=== PATIENT | female | born 1940 | race Caucasian/White ===

== ENCOUNTER 2022-07-09 08:15 | Outpatient (CLI) | payer MEDICARE, BC, SELFPAY ==
[2022-07-09 14:30] LABS: SARS PCR* Negative SARS-CoV-2 (Negative)
== END 2022-07-09 08:16 | disposition home or self-care (01) ==
LOC: FBOREF 08:16
PROVIDERS: PCP Internal Medicine; Visit Provider Orthopaedic Surgery Sports Medicine
DX: Z20.822 Contact with and (suspected) exposure to COVID-19 (principal)
CPT/HCPCS: 87635

== ENCOUNTER 2022-07-13 06:29 | Day surgery (SDC) | payer MEDICARE, BC, SELFPAY ==
[2022-07-13] VITALS (26 sets, daily range): BP systolic 82–185; BP diastolic 49–105; PULSE 64–94; RESP 10–18; TEMP 35.2–36.8; O2SAT 93–100; BMI 26.4
[2022-07-13] MEDS: LACTATED RINGERS 1000 ML 1,000 ML 100 ML IV ×2 (06:20→09:11)
[2022-07-13] MEDS: CELECOXIB 200 MG CAPSULE PO ×2 (06:45→21:19)
[2022-07-13] MEDS: ACETAMINOPHEN 500 MG TABLET 1000 MG PO ×2 (06:45→14:54)
--- NOTE | 2022-07-13 07:45 | CRLHL7_ITS ---
For Patients: As a result of the Cures Act, medical imaging exams and procedure reports are released immediately into your electronic medical record. You may view this report before your referring provider. If you have questions, please contact your health care provider. Indication: Postop Technique: Two views right knee Comparison: No comparison Findings: Right knee total arthroplasty in satisfactory position. Postoperative soft tissue edema and gas. Dictated by Kady Gonzales MD @ 07/13/2022 11:17:04 AM (Electronically Signed)
[2022-07-13] MEDS: fentaNYL 100 MCG/2 ML inj IVP (07:59)
[2022-07-13] MEDS: MIDAZOLAM HCL 1 MG/ML inj IVP (08:00)
[2022-07-13] MEDS: CEFAZOLIN 2 GM in 0.9 % SODIUM CHLORIDE Mini-bag 100 ML IVPB (08:40)
[2022-07-13] MEDS: TRANEXAMIC ACID 100 MG/ML INJ 1000 MG IV (08:45)
--- NOTE | 2022-07-13 09:08 | P.NB_ITS ---
Nerve Block Nerve Block Time Seen by Provider: 07:57 Date Seen: 07/13/22 Type of block requested by surgeon for post-operative analgesia: geniculars Side: right Time out performed: Yes Verification of patient name: Yes Verification of date of : Yes Site marking: site marked Name of person performing procedure: Michael Continuous monitoring Was continuous monitoring of O2 sat, B/P, groundwater monitoring technician, recorded every 15 minutes?: Yes Procedure Checklist: sterile prep, needles and gloves Medications given in 5ml increments after negative aspiration: Ropivicaine %: 0.5 mL: 9 Needle gauge: 25 Patient tolerated procedure well: Yes Block Charges Block Charge (with Pro Fee): Genicular Nerve Block Use of Ultrasound Machine for Block: No
--- NOTE | 2022-07-13 09:08 | W.PM.NB ---
Nerve Block Nerve Block Time Seen by Provider: 07:57 Date Seen: 07/13/22 Type of block requested by surgeon for post-operative analgesia: adductor canal Side: right Time out performed: Yes Verification of patient name: Yes Verification of date of : Yes Site marking: site marked Name of person performing procedure: Michael Continuous monitoring Was continuous monitoring of O2 sat, B/P, color television console monitor, recorded every 15 minutes?: Yes Procedure Checklist: sterile prep, needles and gloves Ultrasound guided. Images saved: Yes Medications given in 5ml increments after negative aspiration: Ropivicaine %: 0.5 mL: 20 Needle gauge: 20 Decadron (mg): 10 Precedex (mcg): 25 Patient tolerated procedure well: Yes Additional comments: Needle noted adjacent to nerve Block Charges Block Charge (with Pro Fee): Femoral Nerve Use of Ultrasound Machine for Block: Yes- US Guidance/pain block
--- NOTE | 2022-07-13 09:08 | W.ANESCHARGE ---
Anesthesia Charges Start Date/Time Anesthesia Start Date: 07/13/22 Anesthesia Start Time: 08:24 Stop Date/Time Anesthesia Stop Date: 07/13/22 Anesthesia Stop Time: 10:42 Summary Extremes of Age - Over 70 or under 1: MDA
--- NOTE | 2022-07-13 09:54 | PM.ORPRC ---
Procedure Note Date of procedure: 07/13/22 Procedure: PREOPERATIVE DIAGNOSIS: 1. Right knee osteoarthritis, primary, severe POSTOPERATIVE DIAGNOSIS: 1. Right knee osteoarthritis, primary, severe PROCEDURE: 1. Right total knee arthroplasty SURGEON: Nilton Beck MD. HOSPICE CLINICAL MARKETER: Lew Covarrubias PA-C - Of note, a skilled assistant plant manager was critical for this case to aid in patient positioning, tissue retraction, limb manipulation/positioning, and closure. ANESTHESIA: Spinal anesthetic IMPLANTS: DePuy J&J all cemented TKA - Attune PS femur size 4 regular, size 3 tibia, 5 poly spacer, 35 mm patella TOURNIQUET: 90 min at 260 torr EBL: 50 ml COMPLICATIONS: None evident INDICATIONS: The patient is a pleasant 82-year-old female who has experienced severe right knee pain and difficulty bearing weight. Workup included x-rays which revealed severe osteoarthrosis in the knee. Given the deformity, the dysfunction, and the pain, as well as the failure of nonoperative management, recommendation was made for surgery. FINDINGS: Good tissue quality and bone quality throughout. Severe chondral loss medial and patellofemoral compartments diffusely. Tricompartmental osteophytes. Moderate effusion upon entering the joint. To lesser degree, lateral compartment chondromalacia also noted. DESCRIPTION OF PROCEDURE: Following a thorough discussion of risks, benefits, and alternatives consent was obtained and the right knee was marked. The patient was brought to the operating room and placed supine on the operating table. Induction of anesthesia was undertaken. 1 g IV Ancef and 1 g tranexamic acid was administered within 1 hr of incision preoperatively. Proper time-out was performed identifying proper patient, site, procedure. The operative extremity was prepped and draped in the appropriate sterile fashion using ChloraPrep after the patient was positioned supine with all bony prominences well padded. A longitudinal, anterior, midline skin incision was made starting approximately 3cm proximal to the superior pole of the patella and advanced distal to the tibial tubercle. A median parapatellar arthrotomy was created. A medial subperiosteal sleeve was created with knife, villeda elevator and curved osteotome. The retropatellar fatpad was resected and the synovium in the suprapatellar pouch excised to visualize the anterior femoral cortex. Femoral preparation was performed via an intramedullary guide. Step drill allowed access into the femoral canal. The distal cutting guide was placed with 5? of valgus and 10 mm cut on the distal femur. Femur was sized using a posterior referencing guide in 3? of external rotation. This found have a best fit with the sizing noted above. The 4 in 1 cutting block was then placed, and the distal femur shaped accordingly. The box cut was then created and the trial implant inserted to confirm appropriate fit. We turned our attention to the proximal tibia. Extramedullary guide was utilized for cutting with the goal of being 90 degree cut from the mechanical axis of the tibia in the varus/valgus plane utilizing tibial crest as the primary alignment. Initially a 3 mm resection was performed from the medial tibial plateau. Ultimately, balancing was achieved in both flexion and extension in both varus and valgus. The knee was able to achieve full extension as well comfortably. The patella was initially measured and found have a thickness of 18 mm. It was resected back to approximately 14 mm. It was sized to be a best fit with as noted above. This was drilled, trial placed. All trials were placed and found to have an excellent stability and balance. At this stage, trial implants were removed, the knee was thoroughly irrigated with normal saline, and the cement was mixed. After irrigation, the knee was thoroughly dried, and cement placed, with the real tibial and femoral implants placed along with the patella. Trial poly spacer was placed and confirmed to have excellent range of motion and full extension, and the real poly spacer opened and inserted. All extra cement was removed, and a 3 min Betadine soak performed. Finally, a final irrigation round with normal saline was performed. Closure performed with 0 Vicryl and #0 Stratafix for the quad tendon/retinaculum. 2-0 Vicryl for the subcutaneous and 4-0 Stratafix for subcuticular closure. Dressings were applied and the patient was awoken from anesthesia after the tourniquet deflated and transferred the PACU in stable condition. A skilled assistant plant manager was critical for this case to aid in patient positioning, tissue retraction, bone exposure, limb manipulation/positioning, patient safety, and closure. PLAN: 1. Weight bear as tolerated operative extremity. 2. 23 hr perioperative antibiotics. 3. Ice. 4. PT/OT consults for ambulation assistance/mobility education. 5. Social work consult for discharge planning. 6. DVT prophylaxis with at SCDs, Noel Hose, and aspirin twice daily.
--- NOTE | 2022-07-13 10:40 | SUR.PREOP ---
TIME?OUT:?0800 PT/RN/MDA?VERIFICATION?OF?SURGICAL?SITE,?PROCEDURE,?AND?CONSENT OBTAINED?PRIOR?TO?INVASIVE?PROCEDURE.
--- NOTE | 2022-07-13 10:45 | W.ANESCHARGE ---
Anesthesia Charges Start Date/Time Anesthesia Start Date: 07/13/22 Anesthesia Start Time: 08:24 Stop Date/Time Anesthesia Stop Date: 07/13/22 Anesthesia Stop Time: 10:42 Summary Extremes of Age - Over 70 or under 1: RETAIL ADMINISTRATIVE ASSISTANT
[2022-07-13] MEDS: HYDROmorphone 0.5 mg/0.5 ml inj IVP (12:52)
[2022-07-13] MEDS: TRAMADOL HCL 50 MG TABLET PO (13:58)
[2022-07-13] MEDS: VALSARTAN 80 MG TABLET PO (14:56)
[2022-07-13] MEDS: CEFAZOLIN 1 GM in 0.9 % SODIUM CHLORIDE Mini-bag 100 ML IVPB ×2 (14:57→22:39)
--- NOTE | 2022-07-13 15:35 | PC.NURSE ---
Shift Summary: Pt arrived to Med Surg floor post op from RTK at 1115. Pt initially reported pain from 0-6/10. Pain improved with Cryocuff and medications. Pt tolerating ice chips, water, juice, and toast well. Pt ambulating with 1 SBA, gait belt, and walker. Pt bp elevated d/t pt stopping antihypertensives two days prior to surgery. Dr. Norman restarted home Valsartan. Pt will return home with daughter in law, Valentina to care for her.
--- NOTE | 2022-07-13 15:41 | PC.NURSE ---
End of Shift Summary: Pt presented to Med Surg unit at 1115 post RTK. Pt pain reported ranging from 0-6/10, improved with Cryocuff and pain medications. Pt tolerating juice, water, and toast well. Pt ambulating with 1 SBA, walker, and gait belt. Pt lives alone, plans to discharge home with help from daughter in law [place]. Pt bp elevated d/t pt holding antihypertensives two days pre op. Dr. Emerson beckham MD restarted home medication Valsartan.
[2022-07-13] MEDS: HYDROCODONE-ACETAMIN 5-325 MG 1 TAB PO ×2 (17:39→21:19)
--- NOTE | 2022-07-13 19:20 | PM.IMCN1 ---
Date of Consult Patient: Shobha Patient Consult date: 07/13/22 Requesting Physician: Orthopedics Primary Care Provider: Lilia Dunn MD Consult Narrative Reason for consult: Assist with postoperative management of hypertension Narrative: Shamar Stover is a 82 year old woman with known advanced, severe right gonarthrosis presents today for an elective right total knee arthroplasty with Dr. Nilton Beck. Procedures undertaken successfully under spinal anesthesia without any apparent complications, with estimated surgical blood loss of 50 mL. Postoperative patient was having difficulties with pain but this is better controlled now. Review of Systems Status of ROS: Reports: 10 or more systems reviewed and unremarkable except as noted in History and below Narrative: Still has some residual postoperative pain but is improved compared to few hours ago. Denies nausea or vomiting. Denies chest heaviness, pressure, tightness, or pain. Denies syncope or near-syncope. Denies orthostasis, lightheadedness, vertigo. Denies palpitations, chest fluttering, claudication. Tolerating increased activities. Notes that the ice packs helped tremendously did lower her pain. She is working with her orthopedic surgeons to address the pain at this time. Reviewed her preoperative assessment. Aside from her right knee discomfort, she has active. She has intermediate plans of continuing with her travels around the country in and around the world, which she enjoys. Remarkably she has had nausea and vomiting with oxycodone in the past. She tells me she has used [place] for pain control in the past without the nausea and vomiting. Requests full resuscitation in the event of cardiopulmonary demise. Primary care physician is Dr. Lilia Dunn. [facility] Medical History (Updated 07/13/22 @ 19:31 by Calos Lockett MD) Branch retinal vein occlusion of left eye ?H34.8322 - Tributary (branch) retinal vein occlusion, left eye, stable (ICD-10) Chronic constipation ?K59.09 - Other constipation (ICD-10) Chronic neck pain ?M54.2 - Cervicalgia (ICD-10) ?G89.29 - Other chronic pain (ICD-10) COVID-19 ?U07.1 - COVID-19 (ICD-10) DDD (degenerative disc disease), lumbar ?M51.36 - Other intervertebral disc degeneration, lumbar region (ICD-10) Essential (primary) hypertension ?I10 - Essential (primary) hypertension (ICD-10) GERD (gastroesophageal reflux disease) ?K21.9 - Gastro-esophageal reflux disease without esophagitis (ICD-10) Hypertension ?I10 - Essential (primary) hypertension (ICD-10) Nontoxic multinodular goiter ?E04.2 - Nontoxic multinodular goiter (ICD-10) Postmenopausal atrophic vaginitis ?N95.2 - Postmenopausal atrophic vaginitis (ICD-10) Primary osteoarthritis involving multiple joints ?M15.9 - Polyosteoarthritis, unspecified (ICD-10) Trigger finger, right middle finger ?M65.331 - Trigger finger, right middle finger (ICD-10) Trochanteric bursitis of both hips ?M70.61 - Trochanteric bursitis, right hip (ICD-10) ?M70.62 - Trochanteric bursitis, left hip (ICD-10) Surgical History (Updated 07/13/22 @ 19:31 by Calos Lockett MD) H/O cataract removal with insertion of prosthetic lens ?Z98.49 - Cataract extraction status, unspecified eye (ICD-10) ?Z96.1 - Presence of intraocular lens (ICD-10) H/O: hysterectomy ?Z90.710 - Acquired absence of both cervix and uterus (ICD-10) History of anterior colporrhaphy ?Z98.890 - Other specified postprocedural states (ICD-10) History of bladder surgery ?Z98.890 - Other specified postprocedural states (ICD-10) History of carpal tunnel surgery of left wrist (12/31/15) ?Z98.890 - Other specified postprocedural states (ICD-10) History of dilation and curettage ?Z98.890 - Other specified postprocedural states (ICD-10) History of laparoscopic-assisted vaginal hysterectomy ?Z90.710 - Acquired absence of both cervix and uterus (ICD-10) History of shoulder surgery (01/01/05) ?Z98.890 - Other specified postprocedural states (ICD-10) S/P trigger finger release (12/31/15) ?Z98.890 - Other specified postprocedural states (ICD-10) Status post hemilaminotomy ?Z98.890 - Other specified postprocedural states (ICD-10) Status post rotator cuff repair ?Z98.890 - Other specified postprocedural states (ICD-10) Family History Mother Stroke High blood pressure Father CHF (congestive heart failure) Brother H/O heart artery stent Social History Smoking Status: Former smoker What tobacco products do you use: cigarettes Smoking quit date/years: >15 years ago Do you use any of these nicotine containing products: None Second hand tobacco smoke exposure: No How often do you have a drink containing alcohol: 2-4 times a month Alcohol type: beer and wine How many standard drinks containing alcohol do you have on a typical day: 1 or 2 How often do you have six or more drinks on one occasion: Never AUDIT-C Alcohol total score: 2 Non-prescribed substance use: denies use Caffeine: Yes (coffee, 1 cup/day) Meds Home Medications and Allergies Home Medications Medication Instructions Recorded Confirmed Type aspirin 81 mg chewable tablet 1 tab PO DAILY 10/06/21 07/12/22 History calcium carbonate 600 mg calcium 600 mg PO BIDWM 10/06/21 07/12/22 History (1,500 mg) tablet cyclobenzaprine 10 mg tablet 10 mg PO HS 10/06/21 07/12/22 History multivitamin 1 tab PO DAILY 10/06/21 07/12/22 History omega-3 fatty acids 500 mg capsule 500 mg PO DAILY 10/06/21 07/12/22 History valsartan 80 mg tablet 80 mg PO DAILY 10/06/21 07/12/22 History Allergies Allergy/AdvReac Type Severity Reaction Status Date / Time latex Allergy Intermediate burning Verified 07/13/22 07:21 sensation erythromycin base Allergy Verified 07/13/22 07:21 Sulfa (Sulfonamide Allergy Nausea Verified 07/13/22 07:21 Antibiotics) acetaminophen AdvReac Mild Vomiting Verified 07/13/22 07:21 oxycodone AdvReac Mild Vomiting Verified 07/13/22 07:21 adhesive AdvReac Verified 07/13/22 07:21 Exam Narrative: Exam Narrative: Appears comfortable when I am examining her. No acute distress. Alert, oriented to self, place, time, situation. Friendly, articulate, cooperative. Mood and affect are congruent. Vision and hearing are grossly normal. Neck is supple. Midline trachea. No JVD or hepatojugular reflux. No carotid bruits. Lungs are clear to auscultation without wheezing, rhonchi, or rales. No CVA tenderness. Heart tones with regular rhythm, normal S1-S2. Grade 3/6 systolic murmur best heard in the right upper sternal border. No gallops or rubs. Abdomen with active bowel sounds, soft, nontender. No focal motor neurologic deficits. Const: Vital Signs, click to edit/add: Vital Signs - 24 hr 07/13/22 07:00 07/13/22 08:00 07/13/22 08:05 Temperature 98.3 F Pulse Rate 73 70 65 Pulse Rate [Left P ulse Oximeter] Respiratory Rate 16 14 14 Blood Pressure 155/79 H 179/99 H 120/66 Blood Pressure [Ri ght Arm] Pulse Oximetry 97 99 99 Oxygen Delivery Me thod Room Air Nasal Cannula Nasal Cannula Oxygen Flow Rate 3 3 07/13/22 08:11 07/13/22 08:16 07/13/22 10:40 Temperature 97.1 F L Pulse Rate 64 66 75 Pulse Rate [Left P ulse Oximeter] Respiratory Rate 14 16 13 Blood Pressure 111/60 100/61 82/49 L Blood Pressure [Ri ght Arm] Pulse Oximetry 99 100 94 Oxygen Delivery Me thod Nasal Cannula Room Air Oxygen Flow Rate 3 07/13/22 10:45 07/13/22 10:50 07/13/22 10:55 Temperature Pulse Rate 75 73 74 Pulse Rate [Left P ulse Oximeter] Respiratory Rate 10 L 12 18 Blood Pressure 93/52 L 99/60 109/68 Blood Pressure [Ri ght Arm] Pulse Oximetry 94 93 93 Oxygen Delivery Me thod Room Air Room Air Room Air Oxygen Flow Rate 07/13/22 11:00 07/13/22 11:05 07/13/22 11:10 Temperature Pulse Rate 71 70 71 Pulse Rate [Left P ulse Oximeter] Respiratory Rate 13 13 14 Blood Pressure 103/58 L 115/60 115/66 Blood Pressure [Ri ght Arm] Pulse Oximetry 93 93 94 Oxygen Delivery Me thod Room Air Room Air Room Air Oxygen Flow Rate 07/13/22 11:16 07/13/22 11:30 07/13/22 11:45 Temperature 95.6 F L 95.7 F L 95.4 F L Pulse Rate 68 Pulse Rate [Left P ulse Oximeter] 70 Respiratory Rate 16 16 16 Blood Pressure Blood Pressure [Ri ght Arm] 126/72 136/78 151/84 H Pulse Oximetry 99 96 Oxygen Delivery Me thod Room Air Room Air Room Air Oxygen Flow Rate 0 07/13/22 12:00 07/13/22 12:45 07/13/22 13:15 Temperature 95.7 F L 96.1 F L 96 F L Pulse Rate Pulse Rate [Left P ulse Oximeter] 69 76 75 Respiratory Rate 16 16 16 Blood Pressure Blood Pressure [Ri ght Arm] 155/98 H 185/97 H 165/105 H Pulse Oximetry 94 95 95 Oxygen Delivery Me thod Room Air Room Air Room Air Oxygen Flow Rate 0 07/13/22 14:15 07/13/22 15:00 07/13/22 15:15 Temperature 96.1 F L 97.1 F L Pulse Rate Pulse Rate [Left P ulse Oximeter] 79 88 Respiratory Rate 16 16 Blood Pressure Blood Pressure [Ri ght Arm] 153/88 H 153/78 H Pulse Oximetry 94 98 97 Oxygen Delivery Me thod Room Air Room Air Oxygen Flow Rate 07/13/22 15:00 07/13/22 16:15 07/13/22 17:15 Temperature 97.4 F L Pulse Rate Pulse Rate [Left P ulse Oximeter] 80 81 Respiratory Rate 16 16 16 Blood Pressure Blood Pressure [Ri ght Arm] 157/94 H 169/91 H Pulse Oximetry 98 94 Oxygen Delivery Me thod Room Air Room Air Oxygen Flow Rate 0 Documenting provider has reviewed patient's vital signs: yes Assessment and Plan Assessment and plan (1) Osteoarthritis of right knee: Problem comment: Right knee osteoarthrosis, severe Status: Acute (2) Status post right knee replacement: Problem comment: 07/13/2022, Dr. Nilton Beck, [place], [place]. Status: Acute (3) Hypertension: Status: Acute Plan 1. Reviewed impression with patient 2. We resumed her antihypertensive medication today already. Continue with the same. 3. Orthopedic surgery will continue to address her pain which is in part driving her elevated blood pressures at this time. 4. I do not foresee a medical reason why she will not be able to be discharged from the hospital tomorrow. 5. Please let the hospitalist service know if there is anything else we can do to support this patient at this time.
[2022-07-13] MEDS: CYCLOBENZAPRINE HCL 10 MG TABLET PO (21:19)
[2022-07-13] MEDS: SENNOSIDES 1 TAB TABLET 2 TAB PO (21:19)
[2022-07-13] MEDS: ASPIRIN 81 MG TABLET EC PO (21:19)
--- NOTE | 2022-07-13 23:18 | PC.NURSE ---
End of shift ([id number]): Patient pleasant and cooperative. Afebrile. Dressing to right knee C/D/I. CMS intact. Rating pain in right knee 08/29. Requesting [place] for pain management. Updated PA. Patient up to chair and bathroom with 1 assist, walker and gait belt. Tolerating regular diet with no nausea.
[2022-07-13] MEDS: CALCIUM CARBONATE 500 MG CHEW PO (23:27)
[2022-07-14 02:47] VITALS: BP 122/74; PULSE 83; RESP 16; TEMP 37; O2SAT 96
--- NOTE | 2022-07-14 05:10 | PC.NURSE ---
[id number]: Patient talkative and cooperative with cares. Pain controlled with PRN [place]. Cryo cuff to R. knee. Denies N/V. A1/walker/GB, tolerates well. Dressing to op site C/D/I. CMS intact. Eating and voiding.
[2022-07-14 06:35] LABS: Basophils Percent Auto 0.1 % (0.0-3.0); Eosinophils Percent Auto 0.1 % (0.0-7.0); Hematocrit 32.4 % (33.0-51.0); Hemoglobin* 10.7 gm/dL (12.0-16.0); Immature Granulocytes Pct Auto 0.3 %; Lymphocytes Percent Auto 6.7 % (20-44); Mean Corpuscular HGB Conc 33 gm/dL (32-36); Mean Corpuscular Hemoglobin 30 pg (26-34); Mean Corpuscular Volume 91 fL (80-100); Monocytes Percent Auto 6.6 % (0.0-11.0); Neutrophils Percent Auto 86.2 % (42.0-72.0); Platelet Count* 283 K/uL (140-440); RDW Coefficient of Variation % 12.4 % (11.5-15.5); Red Blood Count 3.57 m/uL (4.00-5.20); White Blood Count* 13.26 K/uL (4.50-11.00)
[2022-07-14 06:42] LABS: Slide Review Reflex No
[2022-07-14] MEDS: CEFAZOLIN 1 GM in 0.9 % SODIUM CHLORIDE Mini-bag 100 ML IVPB (06:45)
[2022-07-14] MEDS: HYDROCODONE-ACETAMIN 5-325 MG 1 TAB PO (06:46)
[2022-07-14 06:48] LABS: Sodium* 137 mmol/L (135-149)
[2022-07-14 06:49] LABS: Potassium* 4.7 mmol/L (3.6-5.1)
[2022-07-14 06:51] LABS: Creatinine* 0.8 mg/dL (0.5-1.5); Est. Creatinine Clearance* 32.17; Estimated Glomerular Filt Rate 73 ml/min
[2022-07-14 06:52] LABS: Blood Urea Nitrogen* 21 mg/dL (7-30)
[2022-07-14 07:00] VITALS: BP 144/71; PULSE 83; RESP 18; TEMP 37; O2SAT 98
[2022-07-14 09:08] VITALS: BP 115/66; PULSE 68; RESP 18; TEMP 37
[2022-07-14] MEDS: ASPIRIN 81 MG TABLET EC PO (09:09)
[2022-07-14] MEDS: CELECOXIB 200 MG CAPSULE PO (09:10)
[2022-07-14] MEDS: VALSARTAN 80 MG TABLET PO (09:10)
--- NOTE | 2022-07-14 10:04 | PC.NURSE ---
Alert and oriented x 3. Pain to right knee, reports 2/10 after [place]. Lung sounds clear, bowels active x 4 quadrants. Patient reports it has been 3-4 days since last BM, she had 2 glasses prune juice last evening and 1 glass this morning with breakfast. Refused senna, she will take at home if prune juice is not effective. Transfers independently, ambulatory with front wheeled walker. Discharged from unit at 1000 with sister in law present. Assisted off unit with wheelchair and transported in private vehicle.
--- NOTE | 2022-07-14 13:18 | P.ORPN_ITS ---
Subjective Subjective Date Seen: 07/14/22 Principal diagnosis: Status postop day 1 right total knee arthroplasty Interval history: Patient reports doing well. No acute events over night. Pain managed with scheduled /PRN medications and ice. Switch was made last night from oxycodone to [place] due better relief from [place] and patient's past. She states that the [place] has been helpful for pain management. DVT prophylaxis 81 mg aspirin by mouth twice daily, bilateral knee high Noel stockings, and SCDs. Denies fevers, chills, aches, N/V, CP, SOB/PERES, tachycardia or lightheadedness. Ortho Exam Narrative Exam Narrative: -Patient appears comfortable; no apparent acute distress -Alert and oriented times 3 -Operative knee mildly swollen; soft tissues supple; no ecchymosis; no erythematous streaking Warmth appropriate -Surgical dressing clean, dry, intact; no drainage -Bilateral calfs soft; no significant swelling, edema, tenderness, erythema, discoloration, warmth, or palpable cords -2+ DP/PT pulses, intact dermatomes and myotomes distally (5/5 strength) Const Vital Signs, click to edit/add: Vital Signs - 24 hr 07/13/22 14:15 07/13/22 15:00 07/13/22 15:15 Temperature 96.1 F L 97.1 F L Pulse Rate Pulse Rate [Left Pulse Oximeter] 79 88 Pulse Rate [Right Dorsalis Pedis] Respiratory Rate 16 16 Blood Pressure Blood Pressure [Right Arm] 153/88 H 153/78 H Pulse Oximetry 94 98 97 Oxygen Delivery Method Room Air Room Air Oxygen Flow Rate 07/13/22 15:00 07/13/22 16:15 07/13/22 17:15 Temperature 97.4 F L Pulse Rate Pulse Rate [Left Pulse Oximeter] 80 81 Pulse Rate [Right Dorsalis Pedis] Respiratory Rate 16 16 16 Blood Pressure Blood Pressure [Right Arm] 157/94 H 169/91 H Pulse Oximetry 98 94 Oxygen Delivery Method Room Air Room Air Oxygen Flow Rate 0 07/13/22 19:35 07/13/22 23:31 07/13/22 23:00 Temperature 97.9 F 97.9 F Pulse Rate Pulse Rate [Left Pulse Oximeter] 94 84 Pulse Rate [Right Dorsalis Pedis] Respiratory Rate 18 18 Blood Pressure Blood Pressure [Right Arm] 148/80 H 135/76 Pulse Oximetry 95 97 97 Oxygen Delivery Method Room Air Room Air Oxygen Flow Rate 07/14/22 02:47 07/14/22 07:00 07/14/22 07:00 Temperature 98.6 F 98.6 F Pulse Rate Pulse Rate [Left Pulse Oximeter] 83 83 Pulse Rate [Right Dorsalis Pedis] 83 Respiratory Rate 16 18 Blood Pressure Blood Pressure [Right Arm] 122/74 144/71 H Pulse Oximetry 96 98 98 Oxygen Delivery Method Room Air Room Air Oxygen Flow Rate 07/14/22 09:08 Temperature 98.6 F Pulse Rate 68 Pulse Rate [Left Pulse Oximeter] Pulse Rate [Right Dorsalis Pedis] Respiratory Rate 18 Blood Pressure 115/66 Blood Pressure [Right Arm] Pulse Oximetry Oxygen Delivery Method Oxygen Flow Rate Assessment and Plan Assessment and plan (1) Osteoarthritis of right knee: Problem details: Right knee osteoarthrosis, severe Status: Acute (2) Status post right knee replacement: Problem details: 07/13/2022, Dr. Nilton Beck, [facility], [place], [place]. Status: Acute (3) Hypertension: Status: Acute Plan - Complete 23 hour perioperative antibiotics. - PT/OT consult for education and assistance. - Social work consult for discharge planning - Prescribed analgesics as needed - DVT prophylaxis: 81 mg aspirin by mouth twice daily, bilateral knee high Noel Hose stockings and SCDs - Anticipation is for discharge to home with friends wounds sister during the postoperative phase if the patient remains medically stable, pain is controlled, and they are safe with mobilization.
--- NOTE | 2022-07-14 13:19 | PM.DS1 ---
DS: Providers Provider Date Seen: 07/14/22 Date of admission: Med/Surg Recovery 07/13/2022 Primary care physician: Lilia Dunn MD Consults: 07/13/22 11:16 Consult to Occupational Therapy [CONS] Routine Comment: Reason(s) for OT Consult:: ADLs Prior to Discharge Any Restrictions?:: See Comment Comment: See nursing activity order for any restrictions. Consult to Physical Therapy [CONS] Routine Comment: Ambulate in the leonard today. Reason(s) for PT Consult:: TKA TX Protocol POD#0 Any Restrictions?:: See Comment Comment: See nursing activity order for any restrictions. Consult to Physician [CONS] Routine Comment: Consulting Provider: Hospitalists Has provider been notified: No Consult to [facility] Spudder [CONS] Routine Comment: Reason for Consult:: Discharge Planning Needs Attending Physician on discharge: Nilton Beck MD Date of Discharge: 07/14/22 DS: Diagnosis Discharge Diagnosis (1) Status post right knee replacement: Status: Acute Problem details: 07/13/2022, Dr. Nilton Beck, [facility], [place], [place]. DS: Summary Hospital Course Hospital Course: The patient has a history of right knee osteoarthritis, primary, severe. After appropriate preoperative evaluation, the patient underwent right total knee arthroplasty. Postoperatively given anticoagulation for deep vein thrombosis prophylaxis. They progressed to PT/OT and were felt ready and prepared for discharge to home with appropriate pain medication and anticoagulation medications. Status at Discharge Functional status at discharge: uses cane/walker Overall status at discharge: patient is progressing back to baseline Time Spent with Patient Time attestation: Total time spent providing and/or coordinating discharge services: Time spent: Less than 30 minutes Exam Const: Vital Signs, click to edit/add: Vital Signs - 24 hr 07/13/22 14:15 07/13/22 15:00 07/13/22 15:15 Temperature 96.1 F L 97.1 F L Pulse Rate Pulse Rate [Left P ulse Oximeter] 79 88 Pulse Rate [Right Dorsalis Pedis] Respiratory Rate 16 16 Blood Pressure Blood Pressure [Ri ght Arm] 153/88 H 153/78 H Pulse Oximetry 94 98 97 Oxygen Delivery Me thod Room Air Room Air Oxygen Flow Rate 07/13/22 15:00 07/13/22 16:15 07/13/22 17:15 Temperature 97.4 F L Pulse Rate Pulse Rate [Left P ulse Oximeter] 80 81 Pulse Rate [Right Dorsalis Pedis] Respiratory Rate 16 16 16 Blood Pressure Blood Pressure [Ri ght Arm] 157/94 H 169/91 H Pulse Oximetry 98 94 Oxygen Delivery Me thod Room Air Room Air Oxygen Flow Rate 0 07/13/22 19:35 07/13/22 23:31 07/13/22 23:00 Temperature 97.9 F 97.9 F Pulse Rate Pulse Rate [Left P ulse Oximeter] 94 84 Pulse Rate [Right Dorsalis Pedis] Respiratory Rate 18 18 Blood Pressure Blood Pressure [Ri ght Arm] 148/80 H 135/76 Pulse Oximetry 95 97 97 Oxygen Delivery Me thod Room Air Room Air Oxygen Flow Rate 07/14/22 02:47 07/14/22 07:00 07/14/22 07:00 Temperature 98.6 F 98.6 F Pulse Rate Pulse Rate [Left P ulse Oximeter] 83 83 Pulse Rate [Right Dorsalis Pedis] 83 Respiratory Rate 16 18 Blood Pressure Blood Pressure [Ri ght Arm] 122/74 144/71 H Pulse Oximetry 96 98 98 Oxygen Delivery Me thod Room Air Room Air Oxygen Flow Rate 07/14/22 09:08 Temperature 98.6 F Pulse Rate 68 Pulse Rate [Left P ulse Oximeter] Pulse Rate [Right Dorsalis Pedis] Respiratory Rate 18 Blood Pressure 115/66 Blood Pressure [Ri ght Arm] Pulse Oximetry Oxygen Delivery Me thod Oxygen Flow Rate DS: Data Data Completed and Pending Labs on day of discharge: Labs from last 24 hours 07/14/22 05:40 WBC 13.26 H RBC 3.57 L Hgb 10.7 L Hct 32.4 L MCV 91 MCH 30 MCHC 33 RDW Coeff of Luis 12.4 Plt Count 283 Neut % (Auto) 86.2 H Lymph % (Auto) 6.7 L [place] % (Auto) 6.6 Eos % (Auto) 0.1 Baso % (Auto) 0.1 Neut # (Auto) 11.40 H Lymph # (Auto) 0.90 [place] # (Auto) 0.90 Eos # (Auto) 0.00 Baso # (Auto) 0.00 Sodium 137 Potassium 4.7 BUN 21 Creatinine 0.8 Estimated Creat Clear 32.17 Estimated GFR 73 Discharge Plan Discharge Disposition: Home, Self-Care Discharging Surgeon: Nilton Beck Follow-Up Appointment: 1 week PO with Lew BELLO Prescriptions: New acetaminophen 500 mg capsule 500 - 1,000 mg PO Q6H MDD 4000mg PRNQty: 100 0RF aspirin 81 mg tablet,delayed release (DR/EC) 81 mg PO BID Qty: 60 0RF Rx Instructions: Medication to help prevent blood clots postoperatively; take TWICE daily. sennosides-docusate sodium [Senna-S] 8.6-50 mg tablet 1 - 4 tab-cap PO BID PRN (Reason: constipation) Qty: 60 0RF Rx Instructions: Hold medication if experiencing loose stools. celecoxib 100 mg capsule 100 mg PO BID Qty: 60 0RF hydrocodone-acetaminophen 5-325 mg tablet 1 - 2 tab PO Q4-6H MDD 6 PRN (Reason: pain) Qty: 42 0RF Continued calcium carbonate 600 mg calcium (1,500 mg) tablet 600 mg PO BIDWM valsartan 80 mg tablet 80 mg PO DAILY multivitamin Tablet 1 tab PO DAILY cyclobenzaprine 10 mg tablet 10 mg PO HS Held aspirin 81 mg tablet,chewable 1 tab PO DAILY Hold Instructions: Resume on 08/12/22. Complete full month course of aspirin 81 mg orally twice daily as prescribed by Orthopedic surgery, then resume 81 mg once daily thereafter. omega-3 fatty acids 500 mg capsule 500 mg PO DAILY Hold Instructions: Resume on 08/12/22. Activity Level: Activity as Tolerated, Weight Bearing as Tolerated, Use Cane and Use Walker Activity Detail: Wound: ?Do not remove original dressing; we will remove this at first postop visit in 1 week. Only remove dressing if integrity is in question. ?No immersing wound in water; showering okay; light scrub with your hand and body soap, rinse, dab dry ?Sutures are under the skin, will dissolve; allow surgical glue to come off naturally; do not scrub the wound or apply ointments/lotions ?Call our office with any redness that streaks, excessive drainage from the wound, or wound gapping. Ice/Elevate: ?Ice as needed for swelling and discomfort (cryocuff or ice pack); elevate frequently above the heart TANVI socks: ?Wear for 1 month, remove for 1 hour 3 times per day ?These are frustrating to take on/off, but are important for blood clot prevention for 1 month after surgery Blood Clot Prevention (DVT): ?Medication: 81 mg aspirin by mouth twice daily (1 month) Driving: ?Do not drive while taking narcotic pain medication ?Anticipate 4-6 weeks no driving if operative leg is driving leg Dental: ?No elective dental work for 6 months post-op. If there is an urgent/emergent dental need, contact our office for an antibiotic prescription. Smoking/Alcohol: ?Do not smoke; do no drink alcohol especially when taking postoperative oral narcotic medication Seek Care from you Primary Care Provider if you experience the following issues in the postoperative phase and beyond: ?Bacterial infections such as: pneumonia, bacterial skin infection (cellulitis), UTI, high fever, chills unrelated to the operative body part - call your primary care physician urgently for treatment in hopes to protect your health and the metal implant. Referrals: ?PT, OT per patient preference - evaluate treat total knee arthroplasty protocol (gait training, ROM, ADLs) Follow up: ?Ortho surgeon follow-up in 6 weeks; repeat radiographs three views operative knee ?EUGENIA visit in 1 week *If there are any acute concerns regarding your surgery, please call our orthopedic clinic ([phone]) Discharge Diet: 2 gm Sodium Patient Instructions: Acetaminophen (By mouth), Hydrocodone/Acetaminophen (By mouth), Aspirin (By mouth), Celecoxib (By mouth), Senna (By mouth) (Sen, Senna-lax), Knee Replacement (DC) Forms: Work/School Release Follow-up: Lilia Dunn MD [Primary Care Provider] - Lew Covarrubias PA-C [Physician [employer]] - 07/24/22 10:30 am ([facility] follow up with Lew LOUIE ) Discharge Orders: Discharge Order (Routine); Ordered 07/14/22 Ordered By: Lew Covarrubias Consulting provider completed their portion of the discharge: Yes
== END 2022-07-14 10:00 | disposition home or self-care (01) ==
LOC: OR 06:31 → MEDSURG 06:35
PROVIDERS: PCP Internal Medicine; Visit Provider Orthopaedic Surgery Sports Medicine
PROC: (CPT 27447; principal; 2022-07-13 08:15)
DX: M17.11 Unilateral primary osteoarthritis, right knee (principal); G89.18 Other acute postprocedural pain; I10 Essential (primary) hypertension; Z87.891 Personal history of nicotine dependence
CPT/HCPCS: 27447; 01402; 36415; 64447; 64454; 73560; 76942; 82565; 84132; 84295; 84520; 85025; 97110; 97116; 97161; 97165; 97530; 99100; A9270; C1776; J0690; J1100; J1170; J2250; J2370; J2405; J2704; J2795; J3010; J3490; J7120

== ENCOUNTER 2022-09-14 18:44 | Outpatient (CLI) | payer MEDICARE, BC, SELFPAY ==
--- NOTE | 2022-09-14 19:00 | MR_ITS ---
[address] [address] Phone:?[phone] Fax:?[phone] Referring Physician Information: Nilton Beck M.D. [address] [facility] [address] Phone:?[phone] Fax:?[phone] Patient:?Adriane Stover D.O.B:?1940 Sex:?Female Phone:?[phone] [facility] MRN:?[id number] Exam Date:?09/14/2022 EXAM: MR LUMBAR SPINE WITHOUT CONTRAST 1.5T CLINICAL INFORMATION: Stenosis, radiculopathy, laminectomy 09/26/2013. No further specific clinical history submitted. CORRELATIVE IMAGES: MRI 06/20/2013. TECHNICAL INFORMATION: T1, T2 and STIR sagittal through the lumbar spine with T1 and T2 axial at selected levels. CONTRAST ADMINISTERED: None.?CONTRAST DISCARDED: None. SEDATION: None. INTERPRETATION:?Segmentation and Alignment:?No segmentation anomaly evident. Accentuation of lumbar lordosis with convex leftward thoracolumbar scoliosis. Sacrum and Sacroiliac joints:?Limited visualized sacrum and sacroiliac joints demonstrate no significant pathology. Conus/distal cord:?No gross lower spinal cord signal pathology evident. No intradural mass or arachnoidal adhesions. Osseous and paraspinous structures:?Bone marrow signal is unremarkable. Paraspinal soft tissues are unremarkable. Disc/Operative changes:?Moderate to marked multilevel disc desiccation throughout. L5-S1 there is trace anterolisthesis with mild annular bulging, severe left and moderate right facet degeneration with left subarticular recess impingement of S1 nerve root. Moderate chronic left greater than right foraminal stenosis with L5 impingement. L4-5, grade 1 spondylolisthesis with advanced facet degeneration, left hemilaminotomy defect, no central or right foraminal neural impingement. Moderate to marked chronic left foraminal stenosis with L4 impingement. L3-4, annular bulging with moderate facet and 3 mm thick ligamentum flavum degeneration producing mild to moderate trefoil central stenosis encroaching or impinging L4 nerve roots. Moderate AP left foraminal stenosis due to facet hypertrophy with mild L3 impingement. L2-3, mild annular bulging and trefoil central stenosis with mild facet arthrosis, no neural compression. Mild foraminal stenosis bilaterally. L1-2, mild annular bulging without significant stenosis or facet arthropathy. T12-L1, moderate to marked disc degeneration with chronic degenerative endplate changes, prominent L1 vertebral hemangioma, no stenosis. CONCLUSION: Multilevel spondylosis with leftward thoracolumbar scoliosis, and these findings: 1. Grade 1 L5-S1 degenerative spondylolisthesis with left subarticular recess and foraminal neural impingement. 2. Grade one L4-5 degenerative spondylolisthesis with left dorsal decompressive changes, left foraminal L4 impingement. 3. Spondylosis at other levels without definite neural impingement. Note: Progression of spondylosis since 2013 study. RSP Electronically signed on 09/15/2022 4:45:00 PM by Orlando Garcia M.D.
== END 2022-09-14 18:45 | disposition home or self-care (01) ==
PROVIDERS: PCP Internal Medicine; Visit Provider Orthopaedic Surgery Sports Medicine
DX: M54.16 Radiculopathy, lumbar region (principal); M43.17 Spondylolisthesis, lumbosacral region; M43.16 Spondylolisthesis, lumbar region
CPT/HCPCS: 72148

== ENCOUNTER 2022-10-16 09:46 | Outpatient (CLI) | payer MEDICARE, BC, SELFPAY | END 2022-10-16 09:47 | disposition home or self-care (01) | LOC: INJ CL 09:46 | PROVIDERS: PCP Internal Medicine; Visit Provider Family Medicine | DX: M54.16 Radiculopathy, lumbar region (principal); M51.36 Other intervertebral disc degeneration, lumbar region | CPT/HCPCS: 62323; J0702; Q9966 ==

== ENCOUNTER 2023-04-28 06:18 | Day surgery (SDC) | payer MEDICARE, BC, SELFPAY ==
[2023-04-28] VITALS (7 sets, daily range): BP systolic 133–181; BP diastolic 78–91; PULSE 76–87; RESP 12–16; TEMP 36.4–36.9; O2SAT 93–99; BMI 24.9
--- OUTSIDE RECORDS SUMMARY | 2023-04-28 06:20 | XMS_ITS | Encounter Summary ---
Author Name Unknown Organization [facility] Address [address] [facility] [place] [address] Care Team Providers Care Coil Shaper Name Role Phone Lilia Rubin Primary Care Provider Jabari Bains MD Unavailable [phone] Reason for Visit * Reason Onset Date Comments Patient Request 06/03/2018 Encounter Details Date Type Department Care Team (Late st Contact Info) Description 06/03/2018 Telephone [facility] [address] [address] [place] [address] [place] [address] Patient Request Social History Tobacco Use Types Packs/Day Years Used Date Smoking Tobacco: Never Smokeless Tobacco: Never Alcohol Use Standard Drinks/Week Comments Yes 0 (1 standard drink = 0.6 oz pur e alcohol) Sex and Gender Information Value Date Recorded Sex Assigned at Not on file Gender Identity Not on file Sexual Orientation Not on file documented as of this encounter Miscellaneous Notes * Telephone Encounter - Lyla Schmidt RN - 06/03/2018 12:52 PM CDT Contacted the pt- SHe has been using the estrace vaginal creme nightly. SHe said the other dr that had givn her the rx directed for her to do it only 3x a week. Pt is planning on surgery in the next few weeks for vag hyst and A&P repair. Pt would like a copy of the drs notes so she can show to her daughter so she knows what is being planned. Questions if a copy of drs notes have been yet sent to her PCP so she has them at the time of her pre op physical. QUestions if the estrace could be causing her ability to jump out of bed in the am. I just cant seem to get up like I used to. * Telephone Encounter - Jessica Fields - 06/03/2018 11:10 AM CDT Pt is wondering if she is using her estrace correctly. She is getting ready to have surgery for a prolapse and the pharmacy told her one thing and Dr. Bains told her another. She would also like something in witting about exactly what was discussed and what was said at her appointment with him forher daughter. documented in this encounter Plan of Treatment Not on file documented as of this encounter Visit Diagnoses Not on filedocumented in this encounter Additional Health Concerns Assessment Noted Time PHQ-9 Depression Total Score: 0 05/24/19 19 11:19 AM RADIO TALK SHOW HOST documented as of this encounter Care Teams Coil Shaper Relationship Specialty Start Date End Date Lilia Rubin [address] [place] [phone] PCP - General Internal Medicine 06/28/18 [place] [address] [place] [address] Assigned OBGYN Provider 01/12/2002/01 documented as of this encounter
--- OUTSIDE RECORDS SUMMARY | 2023-04-28 06:20 | XMS_ITS | Clinical Summary ---
Author Name Unknown Organization [facility] Address [address] [facility] [place] [address] Care Team Providers Care Grit Removal Operator Name Role Phone Lilia Rubin Primary Care Provider Allergies Active Allergy Reactions Criticality Noted Date Comments Erythromycin GI Disturbance,Other (See Comments) 09/30/2004 Unknown Nausea Latex Rash Low 05/01/2014 Liquid Adhesive Other (See Comments) 10/02/2015 Unknown Oxycodone-Acetaminophen Nausea and Vomiting 12/2014 10325, unknown Sulfa Antibiotics Hives,Rash Low 09/30/2004 Medications Medication Sig Dispensed Refills Start Date End Date Status cyclobenzaprine (FLEXERIL) 10 MG tablet Take 10 mg by mouth At Bedtime 0 05/01/2014 Active naproxen sodium (ANAPROX) 220 MG tablet Take 1 tablet by mouth 2 times daily as needed 0 10/02/2015 Active aspirin (ASA) 81 MG chewable tablet Take 81 mg by mouth At Bedtime 0 Active LUTEIN-ZEAXANTHIN PO Take 1 tablet by mouth At Bedtime 0 Active magnesium 250 MG tablet Take 1 tablet by mouth 2 times daily as needed 0 Active multivitamin (CENTRUM SILVER) tablet Take 1 tablet by mouth daily 0 Active Weionsw-Gtuqdthql-Zukn min D (CITRACAL SLOW RELEASE PO) Take 1 tablet by mouth every morning 0 Active Glucosamine HCl (GLUCOSAMINE PO) Take 1 tablet by mouth daily 0 Active [place]-3 Fatty Acids (OMEGA III EPA+DHA PO) Take 1 capsule by mouth every morning 0 Active propylene glycol (SYSTANE BALANCE) 0.6 % SOLN ophthalmic solution Place 1 drop into both eyes every evening as needed for dry eyes 0 Active Active Problems Problem Noted Date Diagnosed Date Uterine prolapse 06/28/2018 Family History Medical History Relation Comments No Known Problems Brother No Known Problems Father No Known Problems Maternal Grandfather No Known Problems Maternal Grandmother No Known Problems Mother No Known Problems Other No Known Problems Paternal Grandmother No Known Problems Sister Relation Status Comments Brother Father Maternal Grandfather Maternal Grandmother Mother Other Paternal Grandmother Sister Social History Tobacco Use Types Packs/Day Years Used Date Smoking Tobacco: Never Smokeless Tobacco: Never Tobacco Cessation:Counseling Given: No Alcohol Use Standard Drinks/Week Comments Yes 0 (1 standard drink = 0.6 oz pur e alcohol) rarely Adolescent Education Answer Date Record ed Getting School Help Needed Not on file 12/27 Sex and Gender Information Value Date Recorded Sex Assigned at Not on file Gender Identity Not on file Sexual Orientation Not on file Last Filed Vital Signs Vital Sign Reading Time Taken Comments Blood Pressure 128/70 08/25/2018 12:43 PM CDT Pulse 72 08/25/2018 12:43 PM CDT Temperature 36.4 ??C (97.5 ??F) 06/30/2018 11:07 AM C DT Respiratory Rate 16 06/30/2018 11:07 AM CDT Oxygen Saturation 97% 06/30/2018 11:07 AM CDT Inhaled Oxygen Concentration - - Weight 68 kg (150 lb) 08/25/2018 12:43 PM CDT Height 157.5 cm (5' 2) 08/25/2018 12:43 PM CDT Body Mass Index 27.44 08/25/2018 12:43 PM CDT Plan of Treatment Health Maintenance Due Date Last Done Comments ADVANCE CARE PLANNING 1940 ANNUAL REVIEW OF HM ORDERS 1940 DEXA 1940 COVID-19 Vaccine (#1) 1940 RSV VACCINE ( & 60+) (1 - 1-dose 60+ series) 1999 FALL RISK ASSESSMENT 2004 MEDICARE ANNUAL WELLNESS VISIT 2004 DTAP/TDAP/TD IMMUNIZATION (3 - Td or Tdap) 01/24/2014 01/25/2004, 01/25/2004 INFLUENZA VACCINE (#1) 2022 9, 01/11/2018, 01/06/2017, Additional history exists PHQ-2 (once per calendar year) 2023 05/23/2018 Pneumococcal Vaccine: 65+ Years Completed 12/27/2015, 12/25/2013, 01/25/2004 ZOSTER IMMUNIZATION Completed 10/20/2018, 08/08/2018, 01/06/2007 HPV IMMUNIZATION Aged Out No longer e ligible based on patient's age to complete this topic IPV IMMUNIZATION Aged Out No longer e ligible based on patient's age to complete this topic MENINGITIS IMMUNIZATION Aged Out No l onger eligible based on patient's age to complete this topic RSV MONOCLONAL ANTIBODY Aged Out No l onger eligible based on patient's age to complete this topic Advance Directives For more information, please contact: [phone] Latest Code Status on File Code Status Date Activated Date Inactivated Comments Full Code 06/28/2018 2:03 PM 06/30/2018 3:36 PM Question Answer Comments Code status determined by: Discussion wi th patient/legal decision maker Care Teams Grit Removal Operator Relationship Specialty Start Date End Date Shaun Lilia Samayoa [address] [phone] PCP - General Internal Medicine 06/28/18
--- OUTSIDE RECORDS SUMMARY | 2023-04-28 06:20 | XMS_ITS | Clinical Summary ---
Author Name Unknown Organization [facility] Address [place], [place] [address] Care Team Providers Care Merchandise Executive Name Role Phone Lilia Dunn MD Primary Care Provider [phone] Allergies Active Allergy Reactions Criticality Noted Date Comments Adhesive Other - Describe In Comment Field 10/02/2015 Unknown Erythromycin GI Upset 11/18/2006 Latex Itching 09/26/2013 Itching burning nausea from smell Oxycodone-Acetaminophen Vomiting 10/01/2010 Sulfa (Sulfonamide Antibiotics) Rash,Hives 09/30/2004 Medications Medication Sig Dispensed Refills Start Date End Date Status multivitamin (MVI) tablet Take 1 tablet by mouth once daily. 0 07/04/2013 Active calcium carbonate (CALTRATE 600) 600 mg (1,500 mg) tablet Take 1 tablet by mouth 2 times daily with meals. 0 07/04/2013 Active llvlu-3a-pev-epa-fis h oil (OMEGA 3) 350-400 mg cap Take by mouth. 0 07/04/2013 Active aspirin chewable 81 mg chewable tabletIndications:Up per back pain,Primary osteoarthritis involving multiple joints Chew 1 Tablet (81 mg) by mouth. 0 06/24/2021 Active celecoxib (CELEBREX) 200 mg capsuleIndications:J aw pain Take 1 Capsule (200 mg) by mouth once daily with a meal. 30 Capsule 0 11/20/2022 Active valsartan (DIOVAN) 80 mg tabletIndications:Hy pertension TAKE 1 TABLET (80 MG) BY MOUTH ONCE DAILY. 90 Tablet 0 04/19/2023 Active cyclobenzaprine (FLEXERIL) 10 mg tabletIndications:Ne ck pain, chronic TAKE ONE TABLET BY MOUTH AT BEDTIME 90 Tablet 3 2023 Active valsartan (DIOVAN) 80 mg tabletIndications:Hy pertension Take 1 Tablet (80 mg) by mouth once daily. 90 Tablet 2 04/06/2022 4 Discontinued cyclobenzaprine (FLEXERIL) 10 mg tabletIndications:Ne ck pain, chronic Take 1 Tablet (10 mg) by mouth at bedtime. 90 Tablet 3 05/27/2022 4 Discontinued Active Problems Problem Noted Date Diagnosed Date Essential hypertension 05/27/2022 Neck pain, chronic 04/16/2011 Postmenopausal atrophic vaginitis 08/24/2009 Nontoxic multinodular goiter 11/18/2006 Chronic constipation Gastroesophageal reflux disease without esophagi tis DDD (degenerative disc disease), lumbar Primary osteoarthritis involving multiple joints Resolved Problems Problem Noted Date Diagnosed Date Resolved Date Enthesopathy of hip region 11/18/2006 0 08/24/2009 Overview: Bilateral trochanteric bursitis Pain in limb 11/18/2006 08/24/2009 Overview: Right, persistent after falling on her hand Other abnormal Papanicolaou smear of cervix and cervical 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) 11/18/2006 08/24/2009 Overview: ASCUS with HPV; negative colposcopy; followed by gynecology Encounters Date Type Department Care Team Description 2023 Refill [facility] [address] [place] [address] Lilia Dunn MD Refill Request (Cyclobenzaprine) 04/19/2023 Refill [facility] [address] [place] [address] Lilia Dunn MD Refill Request (Valsartan) from Last 3 Months Immunizations Name Administration Dates Next Due AMB Influenza, IIV3 (Age >=3 years)(Flu Clinic Only) 01/27/2010 Influenza Virus, Unspecified 01/11/2009, 02/14/2008,02/17/2007,2005,02/06/2005 Influenza, High-dose Inactivated 02/01/2019,12/21,02/15/2016 Influenza, High-dose Quadriv alent Inactivated 01/31/2020 Influenza, IIV3 (Age >=3 years) 02/21/20 15,02/15/2013,02/02/2012,2010,02/14/2008,02/17/2007 Influenza, IIV4 12/26/2013 Influenza, Inactivated AIIV4 (Age 65+ Years) Preserv Free 02/04/2021 Influenza, Inactivated IIV3 (Age 65+ Years) Preserv Free 01/11/2018 Pneumococcal Poly,23-Valent (Pneumovax) 12/27/2015,01/25/2004 Pneumococcal conj 13-Valent (Prevnar 13) 12/26/2013 Td (Age >=7 Years) 01/25/2004 Tdap 11/16/2022,02/02/2012 Zoster (Shingrix-RZV, recombinant) 10/20/2018, Zoster (Zostavax-ZVL, live) 01/06/2007, 7 Family History Medical History Relation Name Comments Heart Disease Father AAA rupture Hypertension Father Hypertension Mother Brain aneurysm, 1981 Stroke Mother Relation Name Status Comments Father (Age 87) Mother (Age 95) Social History Tobacco Use Types Packs/Day Years Used Date Smoking Tobacco: Former Cigarettes 0.3 16 0 03/22/1959 - 03/22/1975 Smokeless Tobacco: Never Tobacco Cessation:Counseling Given: Yes Comments:quit 40 yrs ago Alcohol Use Standard Drinks/Week Comments Yes 0 (1 standard drink = 0.6 oz pure alcohol) social, glass of wine or two a week PHQ-2 Answer Date Recorded PHQ-2 TOTAL SCORE 0 05/27/2022 Social Connections Answer Date Recorded Frequency of Communication with Friends and Fami ly Not on file 03/22/2021 Financial Resource Strain Answer Date R ecorded Difficulty of Paying Living Expenses Not on file 03/22/2021 Difficulty of Paying Living Expenses Not on file 03/22/2021 Sex and Gender Information Value Date Recorded Sex Assigned at Not on file Gender Identity Not on file Sexual Orientation Not on file Obstetrics History Para Term AB IAB SAB Ectopic Multiple Livin g Live Births 6 4 4 0 2 0 2 0 0 4 Date Outcome GA Total Labor Labor/2nd/3rd Weight Sex Delivery Anes PTL Krista A1 A5 Name Cl in SAB SAB Term Term Term Term Last Filed Vital Signs Vital Sign Reading Time Taken Comments Blood Pressure 122/82 12/02/2022 10:37 AM CDT Pulse 75 12/02/2022 10:16 AM CDT Temperature 36.2 ??C (97.1 ??F) 11/16/2022 10:11 PM C DT Respiratory Rate 18 11/16/2022 10:19 PM CDT Oxygen Saturation 98% 12/02/2022 10:16 AM CDT Inhaled Oxygen Concentration - - Weight 63 kg (139 lb) 12/02/2022 10:16 AM CDT Height 154.9 cm (5' 1) 12/02/2022 10:16 AM CDT Body Mass Index 26.26 12/02/2022 10:16 AM CDT Plan of Treatment Health Maintenance Due Date Last Done Comments COVID-19 vaccine series ( season) 2022 06/03/2020, 05/08/2020 Influenza for age 65+ 11/20/2022 02/04/2021 , 01/31/2020, 02/01/2019, Additional history exists Depression screening for age 12+ 05/28/2023 05/27/2022, 05/26/2021, 05/26/2021, Additional history exists Medicare Wellness for age 65+ 05/28/2023, 05/26/2021, 05/20/2020, Additional history exists BMI (ht and wt on same day) for age 18+ 12/03/2023 12/02/2022, 11/20/2022, 07/06/2022, Additional history exists Tetanus booster 11/16/2032 11/16/2022, 01/20, 01/25/2004 Pneumococcal series for age 65+ Completed 12/27/2015, 12/26/2013, 01/25/2004 Zoster (shingles) series for age 50+ Completed 10/20/2018, 08/08/2018, 01/06/2007, Additional history exists DEXA/DXA scan for age 65+ Completed 02/21/2019, 10/2009 Tdap Completed 11/16/2022, 02/02/2012 Advance Directives Documents on File Type Date Recorded Patient Secretary Expl anation Healthcare Directive 10/10/2021 022 Latest Code Status on File Code Status Date Activated Date Inactivated Comments Full Code 09/26/2013 7:15 AM 09/27/2013 2:48 PM Care Teams Merchandise Executive Relationship Specialty Start Date End Date Lilia Dunn MD [address] [facility] [place] [id number] PCP - General Internal Medicine 04/24/15
--- OUTSIDE RECORDS SUMMARY | 2023-04-28 06:20 | XMS_ITS | Referral Summary ---
Author Name Unknown Organization [facility] Address [address] [facility] [place] [address] Care Team Providers Care Bottle Carrier Name Role Phone Lilia Rubin Primary Care [...] 1 tablet by mouth daily 0 Active Vtunraa-Bhzyjfzqh-Dlmi min D (CITRACAL SLOW RELEASE PO) Take 1 tablet by mouth every morning 0 Active Glucosamine HCl (GLUCOSAMINE PO) Take 1 tablet by mouth daily 0 Active [facility]-3 Fatty Acids (OMEGA III EPA+DHA PO) Take 1 capsule by mouth every morning 0 Active propylene glycol (SYSTANE BALANCE) 0.6 % SOLN ophthalmic solution Place 1 drop into both eyes every evening as needed for dry eyes 0 Active Active Problems Problem Noted Date Diagnosed Date Uterine prolapse 06/28/2018 Social History Tobacco Use Types Packs/Day Years [...] 08/25/2018 12:43 PM CDT Plan of Treatment Not on file Advance Directives For more information, please contact: [phone] Latest Code Status on File Code Status Date Activated Date Inactivated Comments Full Code 06/28/2018 2:03 PM 06/30/2018 3:36 PM Question Answer Comments Code status determined by: Discussion wi th patient/legal decision maker Care Teams Bottle Carrier Relationship Specialty Start Date End Date Shaun Samayoa Lilia Corado [address] [facility] [place] [id number] PCP - General Internal Medicine 06/28/18
[2023-04-28] MEDS: ETHYL CHLORIDE 1 APPLICATION 1 APPLIC TOPICAL (06:50)
[2023-04-28] MEDS: BUPIVACAINE 0.5% 30 ML INJECTION (06:50)
--- NOTE | 2023-04-28 07:36 | PM.ORPRC ---
Procedure Note Date of procedure: 04/28/23 Procedure: PREOPERATIVE DIAGNOSIS: 1. Right carpal tunnel syndrome POSTOPERATIVE DIAGNOSIS: 1. Right carpal tunnel syndrome PROCEDURE: 1. Right open carpal tunnel release SURGEON: Nilton Beck MD. MEDICAL RECEPTIONIST ASSISTANT: Macey Norman Pac ANESTHESIA: Local anesthetic (50:50 mixture of 2% lidocaine with epi and 0.5% marcaine plain) - 10ml total IMPLANTS: None EBL: 2 mL TOURNIQUET: None COMPLICATIONS: None evident INDICATIONS: The patient is a pleasant 83-year-old female who has experienced right hand numbess/tingling affecting the radial 3.5 digits for multiple months. It has progressively gotten worse. Nonoperative management has been tried and failed, and therefore surgery was recommended. DESCRIPTION OF PROCEDURE: Following a thorough discussion of risks, benefits, and alternatives consent was obtained and the operative extremity was marked. The patient was brought to the operating room and placed supine on the operating table. Local anesthesia induction was undertaken in preop holding. No antibiotics were administered as this was planned to be a local case only. Proper time-out was performed identifying proper patient, site, and procedure. The operative extremity was prepped and draped in the appropriate sterile fashion using ChloraPrep. An incision was made in line with the radial border of the ring finger beginning 1 cm distal to the distal wrist crease and progressing for another 2.5cm distal. Caution was taken to stay proximal to Ferrear's cardinal line. Sharp incision through the skin, subcutaneous tissue, and palmar fascia was performed. The thenar musculature was bluntly elevated off the transverse carpal ligament. The ligament was directly visualized, and divided sharply with a 15 blade. This was released from its most proximal to the most distal extent. Metzenbaum scissor was also utilized to release the fascia extension proximally. We confirmed complete release of the transverse carpal ligament. Closure was performed with 4-O nylon in interrupted fashion. Soft dressings were applied, and the patient was transferred to the recovery room in stable condition. PLAN: 1. Encourage elevation of the operative extremity. 2. Range of motion of the fingers and hand/wrist as tolerated. 3. Ibuprofen/acetaminophen as needed for pain control. 4. Follow up with PA visit or nurse visit in 12-16 days for wound check and suture removal.
--- NOTE | 2023-04-28 08:24 | SUR.PREOP ---
SAME DAY SURGERY LOCAL INJECTION SITE VERIFICATION WAS PERFORMED BY SURGEON/PA AND PATIENT PRIOR TO LOCAL ANESTHETIC BEING INJECTED TO OPERATIVE SITE.
== END 2023-04-28 08:10 | disposition home or self-care (01) ==
PROVIDERS: PCP Internal Medicine; Visit Provider Orthopaedic Surgery Sports Medicine
PROC: (CPT 64721; principal; 2023-04-28 07:15)
DX: G56.01 Carpal tunnel syndrome, right upper limb (principal)
CPT/HCPCS: 64721; J0665

== ENCOUNTER 2023-05-18 09:04 | Outpatient (CLI) | payer MEDICARE, BC, SELFPAY | END 2023-05-18 09:05 | disposition home or self-care (01) | LOC: INJ CL 09:06 | PROVIDERS: PCP Internal Medicine; Visit Provider Family Medicine | DX: M54.16 Radiculopathy, lumbar region (principal); M51.36 Other intervertebral disc degeneration, lumbar region | CPT/HCPCS: 62323; J0702; Q9966 ==

== ENCOUNTER 2024-06-13 08:30 | Outpatient (CLI) | payer MEDICARE, BC, SELFPAY | END 2024-06-13 08:31 | disposition home or self-care (01) | LOC: INJ CL 08:33 | PROVIDERS: PCP Internal Medicine; Visit Provider Family Medicine | DX: M54.16 Radiculopathy, lumbar region (principal); M51.369 Other intervertebral disc degeneration, lumbar region without mention of lumbar back pain or lower extremity pain | CPT/HCPCS: 62323; J0702; Q9966 ==